=== PATIENT | female | born 1940 | race Caucasian/White ===

== ENCOUNTER 2019-03-07 08:23 | Day surgery (SDC) | payer MEDICARE ==
[~2019-03-07 08:23] MED LIST: CEFAZOLIN 2 GM/50 ML (PMX) 50 ML IVPB; LACTATED RINGER'S 1,000 ML IV
[2019-03-07] MEDS ORDERED: ATROPINE 1 MG/10 ML SYRINGE IV (09:30)
[2019-03-07] MEDS ORDERED: LABETALOL HCL 20MG INJ IV (09:30)
[2019-03-07] MEDS ORDERED: DIPHENHYDRAMINE 50 MG INJ IV (09:30)
[2019-03-07] MEDS ORDERED: ONDANSETRON 4 MG INJ IV (09:30)
[2019-03-07] MEDS ORDERED: ALBUTEROL 0.083% (NEB) 2.5 MG/3 ML AMP HHN (09:30)
[2019-03-07] MEDS ORDERED: EPHEDrine 25 MG/5 ML SYG IV (09:30)
[2019-03-07] MEDS ORDERED: hydrALAzine 20 MG INJ IV (09:30)
[2019-03-07] MEDS ORDERED: LEVALBUTEROL (NEB) 0.63 MG/3 ML AMP HHN (09:30)
[2019-03-07] MEDS ORDERED: HYDROmorphONE 1 MG/5 ML IV SYRINGE IV (09:30)
[2019-03-07] MEDS ORDERED: KETOROLAC 15 MG INJ IV (09:30)
[2019-03-07] MEDS ORDERED: FENTAnyl 50 MCG/ML VIAL IV (09:30)
[2019-03-07] MEDS ORDERED: ETOMIDATE 20 MG INJ (10:00)
[2019-03-07] MEDS ORDERED: EPHEDrine 25 MG/5 ML SYG (10:00)
[2019-03-07] MEDS ORDERED: PHENYLephrine (100 MCG/ML) 10ML SYG (10:00)
[2019-03-07] MEDS: ACETAMINOPHEN 500 MG TAB PO (10:05)
[2019-03-07] MEDS ORDERED: FENTAnyl 50 MCG/ML VIAL (10:06)
[2019-03-07] MEDS ORDERED: CEFAZOLIN 1 GM INJ (10:06)
[2019-03-07] MEDS ORDERED: MIDAZOLAM 1 MG/ML 2 ML INJ (10:06)
[2019-03-07] MEDS ORDERED: SOD CHLORIDE 0.9% 1,000 ML IV (10:30)
[2019-03-07] MEDS ORDERED: LACTATED RINGER'S 1,000 ML IV (10:30)
[2019-03-07] MEDS: BUPIVACAINE 0.5% (SDV) 30 ML INJ (11:13)
[2019-03-07] MEDS: POLYMYXIN/BACITRACIN 1L IRRIG IRR (11:13)
[2019-03-07] MEDS ORDERED: KETOROLAC 30 MG INJ (12:32)
== END 2019-03-07 14:40 | disposition home or self-care (01) ==
LOC: SDS 08:23
DX: M20.41 Other hammer toe(s) (acquired), right foot (principal); M89.371 Hypertrophy of bone, right ankle and foot; I10 Essential (primary) hypertension; E03.9 Hypothyroidism, unspecified; E78.5 Hyperlipidemia, unspecified
CPT/HCPCS: 28755; 73630; 82962; 88304; 88311